=== PATIENT | male | born 1965 | race Caucasian/White ===

== ENCOUNTER 2023-11-30 17:32 | Outpatient (CLI) | payer BC, SELFPAY ==
--- NOTE | ~2023-11-30 | XR_ITS ---
EXAMINATION: XR thoracic spine 3V, XR lumbar spine 2-3V, XR pelvis 1-2V DATE: 11/30/2023 18:08 INDICATION: Back pain TECHNIQUE: 1. AP, lateral and lateral swimmer's views of the thoracic spine were obtained. 2. AP, lateral and coned-down lateral lumbosacral views of the lumbar spine were obtained. 3. AP view of the pelvis was obtained. COMPARISON: None. FINDINGS: Thoracic spine: Alignment is normal. Vertebral body heights are normal. There is severe disc height loss at T7-T8 and moderate disc height loss throughout the lower thoracic spine and mild to moderate disc height loss and a more cephalad thoracic spine. Calcified left lower lobe nodule consistent with old granulomatou s disease. Visualized portions of the cardiomediastinal silhouette are normal. Lumbar spine: A degree lumbar levocurvature. 3 mm retrolisthesis L4 on L5. Vertebral body heights are normal. Moder ate disc height loss at L4-L5. Mild disc height loss at L1-L2 and L3-L4. Severe facet osteoarthritis on the right at L4-L5 and bilaterally at L5-S1. There is mild to moderate facet osteoarthritis in the remainder of the lumbar spine. Pelvis: No fracture or suspected osteonecrosis. Mild bilateral hip and sacroiliac osteoarthritis. Multiple ph leboliths in the pelvis. IMPRESSION: 1. Moderate to severe thoracic spondylosis. 2. Mild lumbar levocurvature with moderate lower lumbar predominant spondylosis. 2. Mild bilateral hip and sacroiliac osteoarthritis. Reviewed, dictated and finalized at location A. IMPRESSION: 1. Moderate to severe thoracic spondylosis. 2. Mild lumbar levocurvature with moderate lower lumbar predominant spondylosis . 2. Mild bilateral hip and sacroiliac osteoarthritis. IMPRESSION: 1. Moderate to severe thoracic spondylosis. 2. Mild lumbar levocurvature with moderate lower lumbar predominant spondylosis . 2. Mild bilateral hip and sacroiliac osteoarthritis.
== END 2023-11-30 17:33 | disposition home or self-care (01) ==
PROVIDERS: PCP Physician Assistant; Visit Provider Physician Assistant
DX: M54.50 Low back pain, unspecified (principal); M54.6 Pain in thoracic spine; M43.04 Spondylolysis, thoracic region; M41.86 Other forms of scoliosis, lumbar region; M43.06 Spondylolysis, lumbar region; M16.0 Bilateral primary osteoarthritis of hip
CPT/HCPCS: 72072; 72100; 72170